=== PATIENT | male | born 1995 | race Caucasian/White ===

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

== ENCOUNTER 2017-01-17 15:54 | Emergency (ER) | payer BC ==
[~2017-01-17] VITALS: Ht 188 cm; Wt 94.9 kg
[~2017-01-17 15:54] MED LIST changes: -FOLI1TAB7 PO; -MRC50 PO; -MULT-506 PO; -SLFEC500 PO
[2017-01-17 16:01] VITALS: TEMP 37.1; Ht 188 cm; Wt 94.9 kg
[2017-01-17] MEDS ORDERED: MRC50 PO (16:28)
[2017-01-17] MEDS ORDERED: FOLI1TAB7 PO (16:28)
[2017-01-17] MEDS ORDERED: MULT-506 PO (16:28)
[2017-01-17] MEDS ORDERED: SLFEC500 PO (16:28)
--- NOTE | 2017-01-17 16:53 | DIAGNOSTIC IMAGING REPORT ---
RIGHT FOOT MIN 3 VIEWS ROUTINE CLINICAL HISTORY: r/o fx Right trauma. Pain. COMPARISON: None. DISCUSSION: The bones and joint spaces appear intact. There is no evidence of fracture, dislocation or bony disease. There is no evidence for soft tissue swelling. IMPRESSION: Negative study. The above report was generated using voice recognition software. It may contain grammatical, syntax or spelling errors. Electronically signed by: Nadir Rueda M.D. 01/17/2017 4:52 PM Dictated Date/Time: 01/17/2017 4:51 PM
--- NOTE | 2017-01-17 16:55 | DIAGNOSTIC IMAGING REPORT ---
LEFT FOOT MIN 3 VIEWS ROUTINE CLINICAL HISTORY: r/o fx trauma COMPARISON: None. DISCUSSION: The bones and joint spaces appear intact. There is no evidence of fracture, dislocation or bony disease. There is no evidence for soft tissue swelling. IMPRESSION: Negative study. The above report was generated using voice recognition software. It may contain grammatical, syntax or spelling errors. Electronically signed by: Nadir Rueda M.D. 01/17/2017 4:54 PM Dictated Date/Time: 01/17/2017 4:52 PM
[2017-01-17 17:39] VITALS: BP 132/84; PULSE 84; O2SAT 99
--- NOTE | 2017-01-18 10:37 | EMERGENCY ROOM VISIT NOTE ---
ED Visit Note First contact with patient: 16:12 Chief Complaint: My feet hurt. History of Present Illness: Mr. Josue is a 21-year-old white male who ambulates into the ED complaining of bilateral foot pain. Patient reports yesterday just over 24 hours ago he reports he jumped over a fence that was approximately 5-6 feet high onto a piece of concrete. He reports when he landed he landed directly on his flat feet. He reports since that time he has had gradually increasing pain in both calcaneus. He feels the pain is much more pronounced on the left than the right. He describes his pain as sharp and throbbing. He rates his discomfort 6/10. The pain on the left does radiate into the lower tibia area. His pain worsens with palpation of the Alcaine he has and Achilles tendons on both feet and weightbearing and ambulation. He has used ibuprofen with minimal relief of his discomfort. He denies any associated symptoms including ankle pain, knee pain, leg/foot weakness/numbness/tingling. Additionally he denies any previous significant injuries or surgeries to his feet. Review of Systems: As noted above in history of present illness. Past Medical History: Crohn's disease. Current Medications: Sulfasalazine, Velasquez catheter, multivitamins, Mercaptopurine. Allergies to Medications: Patient denies. Social History: Patient is not employed; he feels safe in his home environment; he denies tobacco and alcohol use. Physical Examination: Vital Signs: Date Time Temp Pulse Resp B/P (MAP) Pulse Ox O2 Delivery O2 Flow Rate FiO2 01/17/17 17:39 84 18 132/84 99 01/17/17 16:01 37.1 105 20 144/84 93 Room Air GENERAL: 21-year-old male in mild to moderate distress due to pain, nontoxic- appearing, afebrile and hemodynamically stable. NEUROLOGICAL: Awake, alert and oriented to person, place and time. Answering questions appropriately and following commands. SKIN: Warm, dry and pink. No soft tissue trauma noted. LOWER EXTREMITIES: No gross bony deformity. No shortening or malrotation. No tenderness in the hips, thighs, knees or lower legs. Left: Moderate tenderness over the calcaneus and over the Achilles tendon. I do not appreciate any bony deformity or crepitus of the calcaneus. Patient's Achilles tendon is attached to the calcaneus and I do not feel any defects of the Achilles tendon. There is also mild tenderness over the fourth and fifth metacarpals and lateral cuneiform tarsal without bony deformity or crepitus. I do not appreciate any swelling through this area. He does have full range of motion in plantar flexion and dorsiflexion of the ankle against resistance in flexion and extension of all toes. The toes and the rest of the foot is warm and pink and capillary refill is brisk. He was able to distinguish light sensations through all dermatomes. Right: Mild tenderness over the calcaneus and over the insertion of the Achilles tendon onto the calcaneus. I do not appreciate any bony deformity or crepitus of the calcaneus. No tenderness over the Achilles tendon. No defects of the Achilles tendon. No tenderness throughout the rest of the foot. I do not appreciate any swelling through this area. He does have full range of motion in plantar flexion and dorsiflexion of the ankle against resistance in flexion and extension of all toes. The toes and the rest of the foot is warm and pink and capillary refill is brisk. He was able to distinguish light sensations through all dermatomes. ED Course: Patient is assessed as noted above. Patient's medication list was reviewed. Patient was offered pain medication and refused. Left Foot X-Rays: Were read by myself and the radiologist showing no fractures or dislocations. Right Foot X-Rays: Were read by myself and the radiologist showing no fractures or dislocations. Patient and I discussed treatment and a final decision was made to place him in the left sided Matthew bandage for ankle support, postop shoe and on nonweightbearing crutches. Patient was educated about today's findings and instructed on history and the plan; he verbalized understanding and agreement with this plan. Clinical Impression: Bilateral foot pain with prominence on the left. Disposition: Patient discharged home in stable condition; prior to departure he was reassessed and subjectively reported he was feeling better and rated his discomfort 3/10. Plan: Comfort measures were discussed with the patient including rest, ice, elevation , alternating ibuprofen and acetaminophen and Matthew bandage, postop shoe and nonweightbearing crutches. Patient was encouraged to follow-up with orthopedics if no better in 7-10 days. Patient was encouraged return ED for worsening/uncontrolled pain, uncontrolled foot swelling, foot weakness/numbness/tingling or any new/concerning symptoms.
== END 2017-01-17 17:40 | disposition home or self-care (01) ==
LOC: C.EDB 15:56 → C.EDD 17:40
DX: K50.90 Crohn's disease, unspecified, without complications (principal); M79.673 Pain in unspecified foot

== ENCOUNTER 2017-05-21 15:57 | Emergency (ER) | payer BC ==
[~2017-05-21] VITALS: Ht 188 cm; Wt 99.3 kg
[~2017-05-21 15:57] MED LIST changes: -CHOL1000 PO; +FOLI1TAB8 PO; -LORA10TA44 PO; +MRC50 PO; +MULT-506 PO; +SLFEC500 PO; -SULF500T36 PO; -VITACAP37 PO
[2017-05-21 16:13] VITALS: TEMP 37; Ht 188 cm; Wt 99.3 kg
[2017-05-21] MEDS ORDERED: SODIUM CHLORIDE 0.9% 1000ML 1,000 ML IV STA (17:51)
[2017-05-21 18:00] LABS: BASO % 0.1 %; BASO ABS # 0.01 K/uL (0-0.2); EOS % 0.4 %; EOS ABS # 0.03 K/uL (0-0.5); HEMATOCRIT 44.2 % (42-52); HEMOGLOBIN 15.5 g/dL (14.0-18.0); IG# 0.02 K/uL (0.00-0.02); LYMPH % 8.2 %; LYMPH ABS # 0.59 K/uL (1.2-3.4); MEAN CELL VOLUME 95.7 fL (80-100); MEAN CORPUSCULAR HEMOGLOBIN 33.5 pg (25-34); MEAN CORPUSCULAR HGB CONC 35.1 g/dl (32-36); MONO % 14.4 %; MONO ABS # 1.04 K/uL (0.11-0.59); NEUT % 76.6 %; NEUT ABS # 5.51 K/uL (1.4-6.5); PLATELET COUNT 160 K/uL (130-400); RED CELL DISTRIBUTION WIDTH CV 13.5 % (11.5-14.5); RED CELL DISTRIBUTION WIDTH SD 46.8 fL (36.4-46.3)
[2017-05-21] MEDS ORDERED: OPTIRAY 320 IV PRN (18:00)
[2017-05-21 18:14] LABS: CREATININE 0.8 mg/dl (0.60-1.40); POTASSIUM 3.9 mmol/L (3.5-5.1)
[2017-05-21 18:16] LABS: TOTAL PROTEIN 7.7 gm/dl (6.4-8.2)
--- NOTE | 2017-05-21 19:20 | EMERGENCY ROOM VISIT NOTE ---
History First contact with patient: 17:29 Chief Complaint: ABDOMINAL PAIN Stated Complaint: APPENDIX PAIN Nursing Triage Summary: Patient has Chrons, and now c/o RLQ pain for last week, today worse and fever. History of Present Illness The patient is a 22 year old male with past medical history significant for Crohn's disease who presents to the Emergency Room with complaints of right lower quadrant abdominal pain. The patient states he had some intermittent mild right-sided abdominal pain over the past week, it became much more severe overnight last night and is now constant, aching, 7/10. He has not tried any medications for his pain. He has had associated nausea, chills and body aches, gas pains and increased flatulence, and decreased appetite today. He denies any diarrhea, constipation, vomiting, blood in the stool, urinary symptoms, or rash. He denies any dizziness or syncope, chest pain, shortness breath, or headaches. He denies any previous abdominal surgeries. Review of Systems A complete 10 point review of systems was reviewed with the patient with pertinent positives and negatives as per history of present illness. All else were negative. Past Medical/Surgical History Medical Problems: (1) Crohns disease Social History Smoking Status: Never Smoker Alcohol Use: heavy Drug Use: none Marital Status: single Occupation Status: [employer] student Current/Historical Medications Scheduled Folic Acid (Folvite), 5 MG PO WK Mercaptopurine (Mercaptopurine), 50 MG PO DAILY Multivitamin (Multivitamin), 1 TAB PO DAILY Sulfasalazine (Sulfasalazine), 1,500 MG PO BID Allergies No known allergies Physical Exam Vital Signs Date Time Temp Pulse Resp B/P (MAP) Pulse Ox O2 Delivery O2 Flow Rate FiO2 05/21/17 19:57 72 18 141/82 98 Room Air 05/21/17 18:06 73 05/21/17 18:02 81 18 145/93 98 Room Air 05/21/17 16:13 37.0 103 16 151/72 96 Room Air Physical Exam CONSTITUTIONAL: Pleasant and cooperative. No acute distress. Mildly dehydrated , but otherwise well appearing and well nourished. HEENT: Normocephalic, atraumatic. Pupils equal, round and reactive to light, EOMI. TMs normal. Pharynx normal. Tacky mucous membranes. NECK: Supple, full active range of motion without discomfort. RESPIRATORY: Clear to auscultation bilaterally with no wheezing, crackles, rhonchi or stridor. Equal expansion bilaterally. CARDIOVASCULAR: Regular rate and rhythm with no murmurs, rubs or gallops. Normal peripheral perfusion. No edema. GASTROINTESTINAL: Moderate tenderness in the right lower quadrant. Positive Rovsing, positive psoas sign, positive guarding. Negative rebound tenderness. Soft and nondistended. No palpable masses or HSM. Hypoactive bowel sounds present in all quadrants. MUSCULOSKELETAL: Full range of motion of all joints without discomfort. INTEGUMENTARY: No rash or other significant dermatologic conditions noted. NEUROLOGIC: Alert and oriented X 4 with normal affect. Normal speech. No focal neurologic deficits noted. Normal gait observed. Medical Decision & Procedures ER Provider Diagnostic Interpretation: ABDOMEN AND PELVIS CT WITH IV CONTRAST CT DOSE: 459.38 mGy.cm HISTORY: Right lower quadrant abdominal pain. eval crohn's flare, appendicitis TECHNIQUE: Multiaxial CT images of the abdomen and pelvis were performed following the use of intravenous contrast. A dose lowering technique was utilized adhering to the principles of ALARA. COMPARISON STUDY: None. FINDINGS: The lung bases are clear. No pneumoperitoneum. No pneumatosis. No fractures within the visualized osseous structures. The liver, gallbladder, pancreas, spleen, adrenal glands, and kidneys are unremarkable. No hydronephrosis. No retroperitoneal lymphadenopathy. No pelvic free fluid. The bladder is unremarkable. Multiple mesenteric lymph nodes measure subcentimeter in short axis diameter. Therefore, these do not meet CT criteria for pathologic involvement. Tiny fat-containing umbilical hernia. The appendix is within normal limits. The appendix measures up to 6 mm in diameter. No periappendiceal fat stranding to suggest acute appendicitis at this time. There are a few sigmoid diverticula. No bowel wall thickening or obstruction. IMPRESSION: 1. No bowel wall thickening or obstruction. 2. No evidence for acute appendicitis. Laboratory Results 05/21/17 17:45 Red Blood Count 4.62, Mean Corpuscular Volume 95.7, Mean Corpuscular Hemoglobin 33.5, Mean Corpuscular Hemoglobin Concent 35.1, Mean Platelet Volume 10.0, Neutrophils (%) (Auto) 76.6, Lymphocytes (%) (Auto) 8.2, Monocytes (%) (Auto) 14.4, Eosinophils (%) (Auto) 0.4, Basophils (%) (Auto) 0.1, Neutrophils # (Auto ) 5.51, Lymphocytes # (Auto) 0.59, Monocytes # (Auto) 1.04, Eosinophils # (Auto ) 0.03, Basophils # (Auto) 0.01 05/21/17 17:45 Test 05/21/17 17:45 White Blood Count 7.20 K/uL (4.8-10.8) Red Blood Count 4.62 M/uL (4.7-6.1) Hemoglobin 15.5 g/dL (14.0-18.0) Hematocrit 44.2 % (42-52) Mean Corpuscular Volume 95.7 fL (80-100) Mean Corpuscular Hemoglobin 33.5 pg (25-34) Mean Corpuscular Hemoglobin Concent 35.1 g/dl (32-36) Platelet Count 160 K/uL (130-400) Mean Platelet Volume 10.0 fL (7.4-10.4) Neutrophils (%) (Auto) 76.6 % Lymphocytes (%) (Auto) 8.2 % Monocytes (%) (Auto) 14.4 % Eosinophils (%) (Auto) 0.4 % Basophils (%) (Auto) 0.1 % Neutrophils # (Auto) 5.51 K/uL (1.4-6.5) Lymphocytes # (Auto) 0.59 K/uL (1.2-3.4) Monocytes # (Auto) 1.04 K/uL (0.11-0.59) Eosinophils # (Auto) 0.03 K/uL (0-0.5) Basophils # (Auto) 0.01 K/uL (0-0.2) RDW Standard Deviation 46.8 fL (36.4-46.3) RDW Coefficient of Variation 13.5 % (11.5-14.5) Immature Granulocyte % (Auto) 0.3 % Immature Granulocyte # (Auto) 0.02 K/uL (0.00-0.02) Erythrocyte Sedimentation Rate 4 mm/hr (0-14) Urine Color DK YELLOW Urine Appearance CLEAR (CLEAR) Urine pH 5.5 (4.5-7.5) Urine Specific [place] 1.024 (1.000-1.030) Urine Protein NEG (NEG) Urine Glucose (UA) NEG (NEG) Urine Ketones NEG (NEG) Urine Occult Blood NEG (NEG) Urine Nitrite NEG (NEG) Urine Bilirubin NEG (NEG) Urine Urobilinogen NEG (NEG) Urine Leukocyte Esterase NEG (NEG) Anion Gap 6.0 mmol/L (3-11) Est Creatinine Clear Calc Drug Dose 185.5 ml/min Estimated GFR () 149.0 Estimated GFR (Non- 128.6 BUN/Creatinine Ratio 18.7 (10-20) Calcium Level 9.0 mg/dl (8.5-10.1) Total Bilirubin 0.5 mg/dl (0.2-1) Direct Bilirubin 0.1 mg/dl (0-0.2) Aspartate Amino Transf (AST/SGOT) 27 U/L (15-37) Alanine Aminotransferase (ALT/SGPT) 25 U/L (12-78) Alkaline Phosphatase 77 U/L (45-117) C-Reactive Protein 1.99 mg/dl (0-0.29) Total Protein 7.7 gm/dl (6.4-8.2) Albumin 4.0 gm/dl (3.4-5.0) Lipase 133 U/L (73-393) Medications Administered Medications (Trade) Dose Ordered Sig/Malaika Route Start Time Stop Time Status Last Admin Dose Admin Sodium Chloride 1,000 ml @ 999 mls/hr Q1H1M STAT IV 05/21/17 17:51 05/21/17 18:51 DC 05/21/17 18:04 999 MLS/HR Medical Decision CC: Patient presenting with complaint of right lower quadrant pain, chills Interpretation of Labs: No leukocytosis, no anemia, no significant electrolyte abnormalities, normal renal function, normal liver enzymes and lipase. Normal ESR, CRP mildly elevated. UA negative. Differential Diagnosis: Includes, but not limited to gastroenteritis, appendicitis, mesenteric adenitis, Crohn's flare, diverticulitis, UTI, dehydration, viral syndrome, among others. Medication Reconciliation: I attest that I have personally reviewed the patient' s current medication list. Vital signs review: I reviewed the patient's vital signs and interpret them as follows: T: Afebrile; BP: Hypertensive; HR: Tachycardic; RR: Within normal limits; Pulse Ox: Within normal limits on room air. Blood pressure screening: The patient was found to have an elevated blood pressure, this was felt to be situational. Summary: Patient was evaluated at bedside, history and physical exam performed. Patient is alert and oriented, no acute distress and nontoxic appearing, resting calmly in the stretcher. Patient has moderate right lower quadrant tenderness to palpation, positive guarding, positive Rovsing and positive psoas sign. Negative rebound tenderness. Abdomen is soft and nondistended with bowel sounds present. She reports subjective fevers and chills at home, but is afebrile currently mildly tachycardic and appears somewhat dehydrated. Orders were placed at bedside for labs, UA, IV fluids for hydration, CT abdomen/ pelvis to evaluate for Crohn's flare and appendicitis. Patient discussed with Dr. Canchola, who agrees with my assessment and plan. Labs reviewed as above, no significant abnormalities. CT imaging negative for any acute abnormality, specifically no appendicitis or evidence of Crohn's flare. Patient reassessed multiple times throughout ED stay, he reports improved symptoms. Tachycardia improved after IV fluids. He is tolerating oral fluids. I updated the patient on all results and plan for discharge, encouraging him to follow closely with his primary care provider and to touch base with his resort desk clerk. I also gave the patient strict return precautions should his symptoms persist or worsen, he verbalized understanding. Patient was discharged home in stable condition and ambulatory. Impression Primary Impression: RLQ abdominal pain Departure Information Dispostion Home / Self-Care Condition GOOD Referrals No Doctor, Assigned (PCP) Patient Instructions ED Abdominal Pain Unkn Cause Male, My [facility] Additional Instructions You have been treated in the Emergency Department your Abdominal Pain. Laboratory results and imaging studies have ruled out any emergent causes for your abdominal pain which would warrant admission or surgery. For pain control, you may take Regular strength (325mg/tab) Tylenol ( acetaminophen) 2 tabs every 4-6 hours as needed. Do not exceed 10 tablets in a 24 hour period. Avoid taking more than 3000 mg of Tylenol per day. This includes any other sources of acetaminophen you may take on a regular basis. Drink plenty of fluids to stay well hydrated. Follow-up with your primary care provider and your resort desk clerk regarding your symptoms, and call for an appointment with your PCP in 2-3 days to be re- evaluated. Please return to the emergency department immediately if you have persistent or worsening abdominal pain over the next 24 hours, severe nausea or vomiting, blood in your stool, fevers >101.5, severe dizziness or passing out, or any other concerns.
--- NOTE | 2017-05-21 19:26 | DIAGNOSTIC IMAGING REPORT ---
ABDOMEN AND PELVIS CT WITH IV CONTRAST CT DOSE: 459.38 mGy.cm HISTORY: Right lower quadrant abdominal pain. eval crohn's flare, appendicitis TECHNIQUE: Multiaxial CT images of the abdomen and pelvis were performed following the use of intravenous contrast. A dose lowering technique was utilized adhering to the principles of ALARA. COMPARISON STUDY: None. FINDINGS: The lung bases are clear. No pneumoperitoneum. No pneumatosis. No fractures within the visualized osseous structures. The liver, gallbladder, pancreas, spleen, adrenal glands, and kidneys are unremarkable. No hydronephrosis. No retroperitoneal lymphadenopathy. No pelvic free fluid. The bladder is unremarkable. Multiple mesenteric lymph nodes measure subcentimeter in short axis diameter. Therefore, these do not meet CT criteria for pathologic involvement. Tiny fat-containing umbilical hernia. The appendix is within normal limits. The appendix measures up to 6 mm in diameter. No periappendiceal fat stranding to suggest acute appendicitis at this time. There are a few sigmoid diverticula. No bowel wall thickening or obstruction. IMPRESSION: 1. No bowel wall thickening or obstruction. 2. No evidence for acute appendicitis. Electronically signed by: Agustin Markham M.D. 05/21/2017 7:24 PM Dictated Date/Time: 05/21/2017 7:04 PM
[2017-05-21 19:57] VITALS: BP 141/82; PULSE 72; O2SAT 98
== END 2017-05-21 20:29 | disposition home or self-care (01) ==
LOC: C.EDB 15:59
DX: R10.31 Right lower quadrant pain (principal); K50.90 Crohn's disease, unspecified, without complications; Z79.899 Other long term (current) drug therapy